=== PATIENT | male | born 1950 | race Caucasian/White ===

== ENCOUNTER 2024-01-21 11:19 | Outpatient (CLI) | payer MEDICARE, SELFPAY ==
--- NOTE | ~2024-01-21 | MMUS_ITS ---
EXAMINATION: MM diagnostic nito LT w denia, US breast LT limited HISTORY: Left breast lump TECHNIQUE: Additional 3-D tomosynthesis images of the bilateral breasts were performed and synthetic 2-D images were generated. CAD analysis was submitted and interpreted. High resolution limited left b reast ultrasound was performed. COMPARISON: None BREAST PARENCHYMAL COMPOSITION:Not Dense. The breasts are almost entirely fatty FINDINGS: MAMMOGRAPHIC FINDINGS: No parenchymal abnormality the breasts identified. No mass lesion or distortion seen. No microcalcifi cations seen. ULTRASOUND: There is no evidence of focal abnormal solid or cystic lesion in the region scanned. IMPRESSION: No evidence for malignancy. No mammographic or sonographic correlate seen for area of concern in the outer left breast. BI-RADS Category 1: Negative Reviewed, dictated and finalized at [facility]. IMPRESSION: No evidence for malignancy. No mammographic or sonographic correlate seen for area of concern in the outer left breast. BI-RADS Category 1: Negative
== END 2024-01-21 11:20 | disposition home or self-care (01) ==
PROVIDERS: PCP Family Medicine; Visit Provider Family Medicine
DX: N63.25 Unspecified lump in the left breast, overlapping quadrants (principal)
CPT/HCPCS: 76642; 77061; 77065; G0279